=== PATIENT | male | born 1965 | race Caucasian/White ===

== ENCOUNTER 2022-08-18 14:43 | Outpatient (CLI) | payer OTHER, SELFPAY ==
--- NOTE | 2022-08-18 15:15 | CRLHL7_ITS ---
For Patients: As a result of the Century Cures Act, medical imaging exams and procedure reports are released immediately into your electronic medical record. You may view this report before your referring provider. If you have questions, please contact your health care provider. Indication: secondary malignant neoplasm femur, metastatic renal cell carcinoma with bilateral lesions in both proximal femora Technique: AP pelvis and two views of each hip, five views total Comparison: Outside CT PET exam 07/07/2022 Findings: Multiple subtle lytic metastatic lesions are present bilaterally. None of these appear to involve the cortex. No pathologic fracture. Impression: Multifocal metastatic lytic intramedullary canal/marrow lesions without cortical involvement or pathologic fracture. Dictated by Blaine Velazquez MD @ 08/21/2022 8:36:04 AM (Electronically Signed)
== END 2022-08-18 14:44 | disposition home or self-care (01) ==
PROVIDERS: PCP Nurse Practitioner Family; Visit Provider Internal Medicine
DX: C79.51 Secondary malignant neoplasm of bone (principal)
CPT/HCPCS: 73521

== ENCOUNTER 2022-12-18 14:02 | Outpatient (CLI) | payer OTHER, SELFPAY | END 2022-12-18 14:03 | disposition home or self-care (01) | LOC: MRI 14:03 | PROVIDERS: PCP Nurse Practitioner Family; Visit Provider Physician Assistant | DX: C79.51 Secondary malignant neoplasm of bone (principal) | CPT/HCPCS: 72197; A9575 ==